=== PATIENT | female | born 1945 | race Caucasian/White ===

== ENCOUNTER → 2018-07-29 | Outpatient (CLI) | payer OTHER | LOC: MRI 12:29 | DX: M47.812 Spondylosis without myelopathy or radiculopathy, cervical region (principal); G31.89 Other specified degenerative diseases of nervous system; G25.3 Myoclonus; Z90.49 Acquired absence of other specified parts of digestive tract; Z87.891 Personal history of nicotine dependence; Z82.49 Family history of ischemic heart disease and other diseases of the circulatory system; Z83.3 Family history of diabetes mellitus; Z80.9 Family history of malignant neoplasm, unspecified ==